=== PATIENT | female | born 1990 | race Caucasian/White ===

== ENCOUNTER 2018-05-01 08:22 | Inpatient (IN) | payer BC, OTHER ==
[~2018-05-01] VITALS: Ht 167.6 cm; Wt 58.5 kg
[2018-05-01 13:43] VITALS: BP 120/59
--- NOTE | 2018-05-01 13:45 | NUR ---
Pre-admission Pre-admission assessment performed in the intake department of [facility]. Pt is A&O and ambulatory with a steady gait. She appears intoxicated and answers all questions appropriately with slight slurred speech. She reports that she has been using Roxycodone, Klonopin, Valium, Xanax, and some ETOH. Vital signs are B/P 120/59, HR 102, O2 sat 95%, RR 19, T 98.2, pain 0/10. Admission to continue on the [facility].
[2018-05-01] MEDS ORDERED: LORAZEPAM 1 MG TABLET PO PRN (14:15)
[2018-05-01] MEDS ORDERED: LORAZEPAM 2 MG/1 ML VIAL IM PRN (14:15)
[2018-05-01] MEDS ORDERED: BUPRENORPHINE HCL 2 MG TAB.SUBL SL PRN (14:15)
[2018-05-01] MEDS ORDERED: ONDANSETRON 4 MG/2 ML VIAL IM PRN (14:15)
[2018-05-01] MEDS ORDERED: MIRALAX 17 GM POWD.PACK PO PRN (14:15)
[2018-05-01] MEDS ORDERED: LOPERAMIDE HCL 2 MG CAPSULE PO PRN ×2 (14:15)
[2018-05-01] MEDS ORDERED: THIAMINE HCL 200 MG/2 ML VIAL IM ONE (14:15)
[2018-05-01] MEDS ORDERED: MAG HYDROX/AL HYDROX/SIMETH 30 ML LIQUID UDC PO PRN (14:15)
--- NOTE | 2018-05-01 14:19 | NUR ---
Admission Note: Admitted at 27 year old female under the care of Dr. Matteo Camara for medically supervised withdrawal from BZO and opiates. Alert and verbally responsive. Oriented x 4. Denies S/I or H/I noted. Speech is slow and slurred. Teary eyed. Disheveled and unkempt. Appears intoxicated due to prior ingestion of substance before coming in to detox. Respirations even and unlabored. No SOB noted. Lung sounds clear bilaterally. Skin warm and moist to touch. Skin check done. No skin breakdown noted. However, she is noted with a track abdirizak to her left neck. Body check done. No contraband was found. Bladder soft and non-distended. Abdomen soft and non-distended. Denies any GI symptoms at this time. Voids independently. Ambulatory ad michelle with steady gait. 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 Denies withdrawal induced delirium and any cardiac complications related to withdrawal and denies history of overdose. She denies S/I or H/I at this time and has not past psychiatric hospitalization. She states her usual withdrawal symptoms are tremors, convulsions, nausea, vomiting, dizziness, anxiety, agitation and sweating. She recently achieved 9 months of sobriety that ended last year. She states that the cause of her relapse was due to relationship problems with her boyfriend, feelings of sadness, happiness all at the same time. She states I want to get sober because I need to start growing up. Im not a little girl anymore where someone needs to take care of me. I want to be the right woman for Darryl and I want him to me someday. She states that her triggers are high anxiety and dealing with negative emotions. She states I have a lot of guilt, shame, fear and school makes me want to relapse. She verbalizes that her relapse has caused negative consequences in her life by impairing relationships with her family, her boyfriend, friends, and school. She has attempted to be sober once in her life and states I am willing to do everything I can to be the woman I can be. Substance Use: 1. Xanax since 12 years old. Currently takes 1 bar (2mg) daily x 9 months via nasal insufflations. Last use was on 05/01/2018 at 0700, 1 mg. 2. Klonopin since 27 years old. Currently takes 2 mg PO at HS x 9 months. Last use was on 04/30/2018 at 2200, 2 mg. 3. Valium since 27 years old. Currently takes 15 mg tablets PO daily x 9 months when Xanax is not available. Last use was on 04/30/2018 at 2200. 4. Marta since 21 years old. Currently injects/snorts 90 mg daily x 9 months. Last use was on 05/01/2018 at 1000, 90 mg. 5. ETOH since 17 years old. Occasionally drinks 750cc of vodka. Last drink was on 04/24/2018 at 1400, 750cc Vodka. 6. Marijuana since 17 years old. Occasionally smokes 1 blunt x 9 months. Last use was on 05/01/2018 at 1000. Treatment History 1. [facility] in [place], [place] x 21 days when she was 24 years old. Orientation to the unit provided. Patient education provided regarding units policies and procedures. Patient was able to provide urine for UDS and blood for labs. She verbalized good understanding of all units policies and procedures. Report given to Dr. Camara who is in the unit at this time and patient will be on PRN Subutex and Ativan x 2 hours, but to be started on 5-day Subutex and 5-day Phenobarbital tomorrow AM. Orders noted and carried out. Addendum: 05/01/18 at 1502 by MERARY LITTLE LVN Patient continues to be appear intoxicated with no s/s of withdrawal noted at this time.
[2018-05-01 14:46] LABS: BASOPHILS # (AUTO) 0.1 K/uL (0.0-8.0); BASOPHILS % (AUTO) 0.9 % (0.0-2.0); EOSINOPHILS # (AUTO) 0.5 K/uL (0.0-0.7); EOSINOPHILS % (AUTO) 7.3 % (0.0-7.0); HEMATOCRIT 41.6 % (31.2-41.9); HEMOGLOBIN 13.9 g/dL (10.9-14.3); LYMPHOCYTES # (AUTO) 1.9 K/uL (20.0-40.0); LYMPHOCYTES % (AUTO) 26.3 % (20.5-51.5); MEAN CORPUSCULAR HGB CONC 34 g/dL (32.3-35.6); MEAN CORPUSCULAR VOLUME 92.7 fL (75.5-95.3); MONOCYTES # (AUTO) 0.6 K/uL (2.0-10.0); MONOCYTES % (AUTO) 8.3 % (0.0-11.0); NEUTROPHILS # (AUTO) 4.1 K/uL (1.8-8.9); NEUTROPHILS % (AUTO) 57.2 % (38.5-71.5); PLATELET COUNT (AUTO) 386 K/uL (179-408); RED BLOOD CELL COUNT(AUTO) 4.48 MIL/uL (3.63-4.92); WHITE BLOOD COUNT (AUTO) 7.1 K/uL (3.8-11.8)
[2018-05-01 15:00] LABS: ALANINE AMINOTRANSFERASE 22 U/L (14-59); ALKALINE PHOSPHATASE 71 U/L (50-136); AMYLASE 18 U/L (25-115); ASPARTATE AMINOTRANSFERASE 19 U/L (15-37); BILIRUBIN,TOTAL 0.7 mg/dL (0.2-1.0); CARBON DIOXIDE 31 mmol/L (21-32); CHLORIDE 101 mmol/L (98-107); CREATININE 0.8 mg/dL (0.6-1.3); GLUCOSE 105 mg/dL (74-106); LIPASE 115 U/L (73-393); MAGNESIUM 1.9 mg/dL (1.8-2.4); POTASSIUM 4.2 mmol/L (3.5-5.1); TOTAL PROTEIN, SERUM 8.2 g/dL (6.4-8.2); UREA NITROGEN, BLOOD 10 mg/dL (7-18)
[2018-05-01 15:01] LABS: *AMPHETAMINE, URINE NEGATIVE (NEGATIVE); *BARBITURATE, URINE NEGATIVE (NEGATIVE); *CANNABINOID, URINE POSITIVE (NEGATIVE); *COCCAINE, URINE NEGATIVE (NEGATIVE); *OPIATE, URINE NEGATIVE (NEGATIVE); *PHENCYCLIDINE SCREEN,URINE NEGATIVE (NEGATIVE)
[2018-05-01 15:03] LABS: ETHANOL < 3 MG/DL (0-0)
[2018-05-01 15:06] LABS: *URINE HCG, QUAL NEGATIVE (NEGATIVE)
[2018-05-01] MEDS ORDERED: IBUP-1627 PO (15:20)
[2018-05-01] MEDS ORDERED: BUPR300T52 PO (15:20)
[2018-05-01] MEDS ORDERED: [UNRECOGNIZED DRUG - CODE] PO (15:20)
[2018-05-01] MEDS ORDERED: SPIR100T5 PO (15:20)
--- NOTE | 2018-05-01 15:29 | NUR ---
Communication: Patient was seen curled in a sitting position in bed. She was seen to be crying profusely. Encouraged patient to verbalize her feelings and concerns. She states "I fucked up, I really fucked up. I feel like I can't breathe. I am having a legit panic attack. Please help me." Patient was encouraged with deep breathing exercises and reassurance was provided. Notified Dr. Camara with orders for OT Ativan 2 mg PO for anxiety leading to a panic attack. unable to enter in orders since he is driving. Orders obtained. Orders noted and carried out. Addendum: 05/01/18 at 1536 by MERARY LITTLE LVN Pulse 111. BP 125/89
[2018-05-01] MEDS ORDERED: LORAZEPAM 1 MG TABLET PO ONE (15:30)
--- NOTE | 2018-05-01 15:38 | NUR ---
OT Ativan 2 mg PO given: Patient was seen having a panic attack. Tears running and severely anxious. Pacing in the room back and fort. Pulse 111. Medicated patient with Ativan 2 mg PO at this time. Will monitor for effectiveness.
[2018-05-01 16:00] VITALS: BP 126/71
--- NOTE | 2018-05-01 16:38 | NUR ---
Re-assessment: Ativan 2 mg Patient was re-assessed. She appears to be calm. She is noted watching TV. Eating chips and a sandwich at this time. OT Ativan 2 mg PO for anxiety/panic attack was effective.
--- NOTE | 2018-05-01 16:49 | NUR ---
COWS/JATIN Assessment: COWS 5, JAMARWA 2, patient presented with mild anxiety. Patient states "I'm not ready to take any detox meds at this time. But I will definitely let you know, 'cause I don't want to get too sick." Support provided.
[2018-05-01] MEDS ORDERED: Medication Not On Formulary EA (Bupropion Hcl (Wellbutrin Xl) 300 MG) PO SCH (17:15)
[2018-05-01] MEDS: buPROPion XL 150 MG TAB.SR.24H PO SCH (18:51)
--- NOTE | 2018-05-01 19:07 | NUR ---
End of Shift Notes: Patient was admitted today at 1419. She will be started on 5-day Phenobarbital and 5-day Subutex taper as ordered with PRNs to manage withdrawal symptoms related to opiate and BZOs. VS monitored closely. She was noted to have a panic attack at 1538 for which she needed 2 mg of Ativan PO as ordered with help. Last COWS 5/ CIWA 2. She was unable to participate in group and activities. Appetite good. Seen and examined by Dr. Stahl today and started patient on Wellbutrin XL 300 mg PO as ordered. Compliant with care and treatment. All needs met and attended. Will continue to monitor.
--- NOTE | 2018-05-01 19:30 | NUR ---
START OF SHIFT Received 27 year old female patient admitted on 05/01/18 for Benzodiazepine, Opiate, ETOH and Marijuana withdrawal. Pt is alert and oriented x4. Pt is noted to be drowsy, and lethargic. She is arousable to verbal stimulation. She is scheduled to start a 5 day Subutex and 5 day Phenobarbital taper tomorrow 05/02/18. She was seen and examined by Dr. Stahl. She also received a one time order for Ativan 2 mg at 1538 for increased anxiety/panic attack. Breathing is even and unlabored, safety measures in place. Will continue to monitor.
--- NOTE | 2018-05-01 20:00 | NUR ---
COWS/CIWA Pt is lying in bed with eyes closed and noted to be asleep. Pt is drowsy and lethargic. Arousable to verbal and tactile stimulation. Unable to accurately assess COWS/CIWA at this time. Safety measures in place. Will continue to monitor.
[2018-05-01 20:07] VITALS: BP 90/50
[2018-05-01 23:25] VITALS: BP 95/58
[2018-05-01] MEDS: LORAZEPAM 1 MG TABLET PO PRN (23:25)
[2018-05-01] MEDS: diphenhydrAMINE 50 MG CAPSULE PO PRN (23:25)
[2018-05-01] MEDS: METHOCARBAMOL 750 MG TABLET PO PRN (23:25)
--- NOTE | 2018-05-01 23:25 | NUR ---
PRN ATIVAN, ROBAXIN, BENADRYL Pt complains of anxiety, restlessness, body aches, and difficulty falling asleep. CIWA:9. PRN Ativan, Robaxin and Benadryl administered as ordered. Safety measures in place. Will monitor effectiveness.
--- NOTE | 2018-05-01 23:25 | NUR ---
RON/JATIN Pt complains of body aches, increased anxiety, stuffy nose, chills, watery eyes, and difficulty falling asleep. Pt states " I'm not ready for my Subutex, I'll definitely need it in the morning." COWS:9, JATIN:9. Will monitor.
--- NOTE | 2018-05-02 00:25 | NUR ---
PRN ATIVAN, ROBAXIN, BENADRYL REASSESSMENT PRN medications effective. Pt is lying in bed with eyes closed noted to be asleep. No facial grimacing noted. Breathing is even and unlabored, safety measures in place. Will monitor.
--- NOTE | 2018-05-02 04:00 | NUR ---
VITALS REFUSED, COWS/CIWA DEFERRED 0400 vitals were refused. COWS/CIWA deferred. Pt is lying in bed with eyes closed noted to be asleep. Breathing even and unlabored, safety measures in place. Will monitor.
--- NOTE | 2018-05-02 07:11 | NUR ---
END OF SHIFT Pt is a 27 year old female patient admitted on 05/01/18 for Benzodiazepine, Opiate, ETOH and Marijuana withdrawal. Pt remains alert and oriented x4. Pt was noted to be drowsy, and lethargic. She complained of body aches, anxiety, chills and stuffy nose during the shift. She is scheduled to start a 5 day Subutex and 5 day Phenobarbital taper today 05/02/18. At 2325 she received PRN Ativan, Robaxin and Benadryl. She slept a total of 8 hrs, Intake: 737mL, Void: x1, BM:0, CIWA:9, COWS:9 at 2325. Breathing is even and unlabored, safety measures in place. Endorsed to AM shift.
--- NOTE | 2018-05-02 07:19 | NUR ---
Start of Shift Notes: Received patient in her room. Easily arousable when her name is called. Alert and oriented x 4. Denies S/I or H/I noted. No AV hallucinations noted. She verbalizes "It's so fucking cold here. I am having the chills, hot flashes, and stuffy nose." Room temperature was adjusted and extra blanket was provided. Patient states that she is willing to wait at 0800 for all her meds to be given. Patient is a 27 year old female admitted for BZO and opiate withdrawal who was placed on a 5-day Subutex and 5-day Phenobarbital taper as ordered. No adverse reactions noted. Educated patient on her current plan of care for the day and her medication regimen. Encouraged oral fluid intake and encouraged group participation to learn new skills to prevent relapse. Per night report, patient was given Ativan, Robaxin and Benadryl. Slept for 8 hours. Last 9/WA 9. Will continue to monitor.
[2018-05-02 08:00] VITALS: BP 102/61
--- NOTE | 2018-05-02 08:00 | NUR ---
RON/JATIN Assessment/MD Communication: RON 27, JATIN 24, patient was noted to frequently shift body position while in bed. She is noted with runny nose, constant tearing. Mood is labile. Dramatic and guarded. She is tearful and verbalizes "I feel like shit." She complains of being "hot and cold," noted with pupil dilation, yawning and piloerection of the skin. She also complains of nausea, abdominal cramping, anxiety and appears highly agitated. Will offer PRN meds and start patient on 5-day Phenobarbital and 5-day Subutex taper as ordered.
[2018-05-02] MEDS: MULTIVITAMINS,THERAPEUTIC TABLET PO SCH (08:03)
[2018-05-02] MEDS: buPROPion XL 150 MG TAB.SR.24H PO SCH (08:03)
[2018-05-02] MEDS: CLONIDINE HCL 0.1 MG TABLET PO PRN ×2 (08:04→14:04)
[2018-05-02] MEDS: PHENOBARBITAL 60 MG TABLET PO SCH ×3 (08:04→20:55)
[2018-05-02] MEDS: BUPRENORPHINE HCL 2 MG TAB.SUBL SL SCH ×4 (08:04→20:54)
[2018-05-02] MEDS: THIAMINE HCL 100 MG TABLET PO SCH (08:04)
[2018-05-02] MEDS: DICYCLOMINE HCL 20 MG TABLET PO PRN ×2 (08:04→17:19)
[2018-05-02] MEDS: METHOCARBAMOL 750 MG TABLET PO PRN (08:04)
[2018-05-02] MEDS: ONDANSETRON ODT 4 MG TAB.RAPDIS SL PRN ×2 (08:04→20:53)
--- NOTE | 2018-05-02 08:04 | NUR ---
Zofran/Clonidine/Benty/Robaxin PO given: Patient was noted with complain of nausea. Unable to eat her breakfast tray. She also complains of 7/10 generalized muscle/joint aches, chills, hot flashes, clammy skin, abdominal cramps and anxiety. Medicated patient with Clonidine, Bentyl and Robaxin as ordered. Will monitor for effectiveness.
[2018-05-02 08:08] LABS: HEPATITIS B SURFACE AG Negative (Negative)
[2018-05-02] MEDS ORDERED: TUBERCULIN,PURIF.PROT.DERIV. 5 TU/0.1 ML TEST ID ONE (09:00)
[2018-05-02] MEDS ORDERED: 6 DAY PHENOBARBITAL TAPER -SERENITY PROTOCOL PO PRN (09:00)
[2018-05-02] MEDS ORDERED: 5 DAY TAPER BUPRENORPHINE -SERENITY PROTOCOL SL PRN (09:00)
--- NOTE | 2018-05-02 09:04 | NUR ---
Re-assessment: Zofran/Clonidine/Bentyl and Robaxin Patient was re-assessed. She was seen in her room. She denies nausea. Skin is warm and moist to touch. She appears less anxious. Abdominal cramping ceased. She verbalizes that her PL is now 3/10. PRN Zofran, Clonidine, Bentyl and Robaxin were effective.
[2018-05-02] MEDS: LORAZEPAM 1 MG TABLET PO PRN (10:53)
--- NOTE | 2018-05-02 10:54 | NUR ---
PRN Subutex 4 mg SL and PRN Ativan 1 mg pO given/MD Communication: COWS 27/CIWA 15. VS stable. Patient called on the call light. Assessed. She was noted with gross tremors. Shivering and diaphoretic with clammy skin. She states "I feel like shit. I want to shower. I'm so uncomfortable." Medicated patient with PRN Subutex 4 mg SL and Ativan 1 mg PO from PRN dose. Notified MD.
--- NOTE | 2018-05-02 11:24 | NUR ---
Re-assessment: Subutex 4 mg SL COWS 17, less tremors, anxiety, less yawning, abdominal discomfort, nausea, and agitation noted. PRN Subutex 4 mg SL was effective.
--- NOTE | 2018-05-02 11:54 | NUR ---
Re-assessment: Ativan CIWA 15, patient continues to be anxious, agitated. Patient states she will try to lay down and rest it off. She states "I will wait for my next dose of Phenobarbital." Will continue to monitor.
[2018-05-02 12:00] VITALS: BP 97/63
[2018-05-02] MEDS: IBUPROFEN 600 MG TABLET PO PRN ×2 (12:22→20:54)
--- NOTE | 2018-05-02 12:22 | NUR ---
Motrin 600 mg PO given: Patient complained of 5/10 generalized pain. Non-pharmacological interventions provided but ineffective. Medicated patient with Motrin 600 mg PO as ordered. Will monitor for effectiveness. Addendum: 05/02/18 at 1335 by MERARY LITTLE LVN Error in charting. Duplicate in charting
--- NOTE | 2018-05-02 12:22 | NUR ---
RON/JATIN Assessment/ aware/PRN Motrin given: RON 19/JATIN 18, patient presented with body aches, anxiety, agitation, tremors, sweating, light sensitivity, chills, and hot flashes. She verbalizes that complain of 5/10 body aches. Medicated patient with Motrin 600 mg PO as ordered. Will monitor for effectiveness.
[2018-05-02] MEDS: SPIRONOLACTONE 100 MG TABLET PO SCH (12:59)
--- NOTE | 2018-05-02 13:22 | NUR ---
Re-assessment: Motrin Per patient, PRN Motrin was effective in reducing body aches. PL is now 12/01.
--- NOTE | 2018-05-02 14:04 | NUR ---
Clonidine 0.1mg PO given: Patient is diaphoretic, cold clammy skin noted. She was noted with gross tremors, restless and appears to be shivering. She verbalizes "I'm so anxious, I feel like I have the flu." VS 117/89, Pulse 93. Medicated patient with Clonidine 0.1mg PO as ordered. Will monitor for effectiveness.
--- NOTE | 2018-05-02 14:07 | NUR ---
Verbal MD order: Pt noted with breakthrough withdrawal symptoms. New order for 300mg Gabapentin PO TID and 10mg Baclofen PO Q6HPRN for muscle spasms. Orders noted and carried out.
[2018-05-02] MEDS ORDERED: GABAPENTIN 300 MG CAPSULE PO SCH (14:15)
[2018-05-02] MEDS: BACLOFEN 10 MG TABLET PO PRN ×2 (14:21→20:53)
--- NOTE | 2018-05-02 14:21 | NUR ---
Baclofen 10 mg PO given: Patient complained of generalized muscle aches and pains /. Non-pharmacological interventions provided but ineffective. Medicated patient with Baclofen 10 mg PO as ordered. Will monitor for effectiveness.
--- NOTE | 2018-05-02 14:59 | NUR ---
OT Subutex 4 mg SL given: Patient continues to exhibit moderate s/s of withdrawal related to opiates. Medicated patient with Subutex 4 mg SL as ordered per MD for COWS 20. Will continue to monitor.
[2018-05-02] MEDS ORDERED: BUPRENORPHINE HCL 2 MG TAB.SUBL SL ONE (15:00)
--- NOTE | 2018-05-02 15:04 | NUR ---
Re-assessment: Clonidine Patient was noted with less sweating and less anxiety. She states "I feel a little bit better." PRN Clonidine was effective.
--- NOTE | 2018-05-02 15:21 | NUR ---
Re-assessment: Baclofen Patient verbalizes relief from myalgia/muscle spasms. PL is now 12/01.
[2018-05-02 16:00] VITALS: BP 95/68
--- NOTE | 2018-05-02 17:06 | NUR ---
RON/JATIN Assessment/MD Communication: RON 17/JATIN 17, patient continues to present with diaphoresis, clammy skin, gross tremors, anxiety, agitation, light sensitivity and abdominal cramps. Notified MD Camara and Klaudia of patient's scores. Per MD, continue current orders at this time and offer PRNs.
[2018-05-02] MEDS: METHOCARBAMOL 500 MG TABLET PO PRN (17:19)
--- NOTE | 2018-05-02 17:19 | NUR ---
Bentyl 20 mg/Robaxin 750 mg PO given: patient complained of 6/10 abdominal cramping and generalized body aches. Medicated patient with Bentyl 20 mg PO and Robaxin 750 mg PO as ordered. Will monitor for effectiveness.
--- NOTE | 2018-05-02 17:25 | NUR ---
Additional Usage History: Patient reported using more than she originally reported upon admission. She states "It wasn't just 90 mg of Roxys I was doing a day. I was using 180 mg of Roxys a day laced with Fentanyl." When asked patient, how much Fentanyl, patient replied "I don't know my dealer told me it was laced." Notified MD. To continue current order.
--- NOTE | 2018-05-02 18:19 | NUR ---
Re-assessment: Robaxin/Bentyl Patient verbalizes relief from abdominal cramping and myalgia. She states that body aches is now 3/10. PRN Robaxin and Bentyl were effective.
--- NOTE | 2018-05-02 19:20 | NUR ---
End of Shift Notes: Patient initiated her 5-day Subutex and 5-day Phenobarbital taper as ordered. No adverse reactions noted. VS monitored closely. No significant abnormalities noted. Withdrawal symptoms were closely monitored. Initial COWS /CI 24, patient presented with elevated pulse, sweating, restlessness, chills, clammy skin, fatigue, poor appetite, hot flashes, pupil dilation, bone/joint aches, runny nose, nausea, gross tremors, piloerection of the skin, anxiety, agitation, poor appetite, abdominal cramping and yawning. Medicated patient with Zofran, Clonidine, Bentyl, Robaxin at 0804 and additional Subutex 4 mg SL and Ativan 1 mg Po at 1054. She was given Motrin 600 mg PO at 1222 and Clonidine at 1400. She was noted to have breakthrough s/s of withdrawal requiring additional Subutex 4 mg SL at 1459 and Baclofen at 1421 with help. PRN Robaxin and Bentyl were given at 1719 with help. Last COWS / 17. Patient verbalizes that Phenobarbital and Subutex has been effective in reducing her withdrawal symptoms. Seen and examined by Dr. Stahl today with orders for Seroquel 50 mg PO at HS for sleep. Patient was unable to participate in group today due to her withdrawal symptoms. Complaint with care and treatment. All needs met and attended. Will continue to monitor
--- NOTE | 2018-05-02 19:30 | NUR ---
START OF SHIFT Pt is a 27 y/o female admitted on 05/01/18 for benzo and opiate withdrawal. Pt is on a 5 day Subutex and 5 day Phenobarbital taper that started today. Pt had PRN and a one time order of Subutex 4 mg today. PRN Zofran, Clonidine x 2, Robaxin x 2, Bentyl x2, Motrin, Baclofen, and Ativan 1 mg administered and last CIWA 27 and COWS 17 during day shift. Upon assessment presents with anxiety, agitation, flat affect, depressed affect, drenching sweats, chills, goosebumps, dilated pupils, disheveled appearance, restlessness, fidgety, headache, body aches, muscle spasms, stomach cramps, tingling/pins and needles sensation in neck and lower back, intermittent nausea, yawning, stuffy nose, teary eyes, unkempt room, and is isolative. Pt states, "I feel to sick to get out of bed." Medications due. Safety measures in place. Call light within reach. Will continue to monitor.
[2018-05-02 20:00] VITALS: BP 97/63
--- NOTE | 2018-05-02 20:00 | NUR ---
COWS 18 AND CIWA 25 Pt presents with anxiety, agitation, drenching sweats, chills, goosebumps, dilated pupils, restlessness, fidgety, headache, body aches, muscle spasms, stomach cramps, tingling/pins and needles sensation in neck and lower back, nausea, yawning, stuffy nose, and teary eyes.
[2018-05-02] MEDS: MAGNESIUM HYDROXIDE 30 ML LIQUID UDC PO PRN (20:53)
[2018-05-02] MEDS: GABAPENTIN 300 MG CAPSULE PO SCH (20:53)
--- NOTE | 2018-05-02 20:53 | NUR ---
PRN BACLOFEN, MOTRIN, TYLENOL AND ZOFRAN ODT ADMINISTRATION Pt presents with muscle spasms in lower back, headache, generalized body pain, and nausea without vomiting. Safety measures in place. Call light within reach. Will continue to monitor. Addendum: 05/02/18 at 2318 by OSIRIS POE RN ADDITIONAL: MILK OF MAG ADMINISTRATION Pt reports being constipated, pt states, "I haven't gone in like 4 days."
[2018-05-02] MEDS: ACETAMINOPHEN 325 MG TABLET PO PRN (20:54)
[2018-05-02] MEDS: QUETIAPINE FUMARATE 25 MG TABLET PO SCH (20:55)
--- NOTE | 2018-05-02 21:23 | NUR ---
PRN COLLETTEFRAN ODT REASSESSMENT Pt reports improvement in nausea to tolerable level. Safety measures in place. Call light within reach. Will continue to monitor.
--- NOTE | 2018-05-02 21:53 | NUR ---
PRN BACLOFEN, MOTRIN AND TYLENOL REASSESSMENT Pt laying in bed with eyes closed, medications noted effective. Respirations even and unlabored. Safety measures in place. Call light within reach. Will continue to monitor. Addendum: 05/02/18 at 2318 by OSIRIS POE RN ADDITIONAL: MILK OF MAG REASSESSMENT Pt has not had BM, will continue to monitor.
[2018-05-03] VITALS: BP 77/45
--- NOTE | 2018-05-03 | NUR ---
COWS/CIWA DEFERRED Pt laying in bed with eyes closed, COWS/CIWA deferred, to be assessed when pt is awake per orders. Respirations unlabored and even. Safety measures in place. Call light within reach. Will continue to monitor.
--- NOTE | 2018-05-03 04:00 | NUR ---
COWS/CIWA DEFERRED AND VITALS REFUSED Pt laying in bed with eyes closed, COWS/CIWA deferred, to be assessed when pt is awake per orders. Vitals refused. Respirations unlabored and even. Safety measures in place. Call light within reach. Will continue to monitor.
--- NOTE | 2018-05-03 07:14 | NUR ---
END OF SHIFT Pt is a 27 y/o female admitted on 05/01/18 for benzo and opiate withdrawal. Pt is on a 5 day Subutex and 5 day Phenobarbital taper that started on 05/02/18. Pt presented with anxiety, agitation, flat affect, depressed affect, drenching sweats, chills, goosebumps, dilated pupils, disheveled appearance, restlessness, fidgety, headache, body aches, muscle spasms, stomach cramps, tingling/pins and needles sensation in neck and lower back, intermittent nausea, yawning, stuffy nose, teary eyes, unkempt room, constipation and was withdrawn. Complete linen change and change of clothes needed d/t drenching sweats. Scheduled medications and PRN Baclofen, Motrin, Tylenol, Zofran odt and Milk of Mag administered, effective in S/S of withdrawal as verbalized by pt. Last COWS 18 and CIWA 25. Pt slept 8 hours. Intake 1450 ml, void x 1, stool x 0. Safety measures in place. Call light within reach. Pts needs have been met. Endorsed to day shift nurse.
--- NOTE | 2018-05-03 07:24 | NUR ---
Start of Shift Notes: Received patient in her room. Easily arousable when her name is called. Alert and oriented x 4. Denies S/I or H/I noted. No AV hallucinations noted. Patient is a 27 year old female admitted for BZO and opiate withdrawal who was placed on a 5-day Subutex and 5-day Phenobarbital taper as ordered. No adverse reactions noted. Educated patient on her current plan of care for the day and her medication regimen. Encouraged oral fluid intake and encouraged group participation to learn new skills to prevent relapse. Per night report, patient was given Baclofen, Motrin and Tylenol were given during the night. Slept for 8 hours. Last COWS 18/CIWA 25. Will continue to monitor.
[2018-05-03 08:00] VITALS: BP 108/79
--- NOTE | 2018-05-03 08:12 | NUR ---
RON/JATIN Assessment/ Communication: RON /JATIN , patient presented with pulse elevation, sweating, cold, clammy skin, diaphoresis, restlessness, myalgia, runny nose, tearing, nausea, gross tremors, piloerection of the skin, anxiety and agitation, and lightheadedness. She was also noted to be irritable and frequently shifting body movement with facial grimacing. MD Camara made aware.
[2018-05-03] MEDS: GABAPENTIN 300 MG CAPSULE PO SCH ×3 (08:13→21:03)
[2018-05-03] MEDS: THIAMINE HCL 100 MG TABLET PO SCH (08:13)
[2018-05-03] MEDS: DICYCLOMINE HCL 20 MG TABLET PO PRN (08:13)
[2018-05-03] MEDS: MULTIVITAMINS,THERAPEUTIC TABLET PO SCH (08:13)
[2018-05-03] MEDS: PHENOBARBITAL 60 MG TABLET PO SCH ×4 (08:14→21:02)
[2018-05-03] MEDS: CLONIDINE HCL 0.1 MG TABLET PO PRN (08:14)
[2018-05-03] MEDS: BUPRENORPHINE HCL 2 MG TAB.SUBL SL SCH ×3 (08:14→21:03)
[2018-05-03] MEDS: ONDANSETRON ODT 4 MG TAB.RAPDIS SL PRN (08:15)
--- NOTE | 2018-05-03 08:15 | NUR ---
Zofran 4 mg ODT, Bentyl 20 mg, Clonidine 0.1mg, Baclofen 20 mg PO given: Patient was given Zofran 4 mg for nausea, Bentyl 20 mg for abdominal discomfort, Clonidine 0.1mg PO foc anxiety, chills, hot flashes, and Baclofen 20 mg PO for myalgia. Will monitor for effectiveness.
[2018-05-03] MEDS: SPIRONOLACTONE 100 MG TABLET PO SCH (08:16)
--- NOTE | 2018-05-03 09:15 | NUR ---
Re-assessment: Zofran, Clonidine, Bentyl, and Baclofen Patient was re-assessed. She verbalzies relief from nausea, chills, hot flashes, and abdominal cramping. She states that her PL is now 3/10 from a 04/30. PRN Zofran, Clonidine, Bentyl and Baclofen were effective.
[2018-05-03] MEDS: buPROPion XL 150 MG TAB.SR.24H PO SCH (09:20)
[2018-05-03 12:00] VITALS: BP 115/61
--- NOTE | 2018-05-03 12:00 | NUR ---
COWS/JATIN Assessment/MD Communication: Patient's COWS 26/JAMARWA 23, she continues to be restless while laying down. Shifting her body position. Diaphoretic and shirt/face drenched in sweats. She is noted with irritability stating "I can't keep fucking still and I can't stop sweating. I'm so sick of being sick." Pulse 93. Notified MD Camara. Patient will have additional Subutex 4 mg SL PRN due to Fentanyl use. Orders noted and carried out.
[2018-05-03] MEDS: BUPRENORPHINE HCL 2 MG TAB.SUBL SL PRN (12:22)
--- NOTE | 2018-05-03 12:22 | NUR ---
PRN Subutex 4 mg SL given: Patient noted with COWS 26, she continues to exhibit moderate to severe s/s of withdrawal. She is noted to be diaphoretic, cold, clammy skin, irritable, anxious, labile, agitated. She complains of hot and cold flashes. PRN Subutx 4 mg SL given. Will monitor for effectiveness.
--- NOTE | 2018-05-03 12:52 | NUR ---
Re-assessment: Subutex 4 mg SL COWS 20, patient noted with less yawning, less sweating, skin moist to touch. PRN Subutex 4 mg SL was effective in reducing s/s of withdrawal.
--- NOTE | 2018-05-03 13:15 | NUR ---
MOM Re-assessment: Patient was noted with no BM at this time.
--- NOTE | 2018-05-03 13:45 | NUR ---
PRN Ativan orders: Verbal orders received from Dr. Camara for patient to have Ativan PRN per CIWA score due to moderate to severe s/s of withdrawal. unable to enter orders. Orders noted and carried out.
[2018-05-03] MEDS: BACLOFEN 10 MG TABLET PO PRN (14:03)
--- NOTE | 2018-05-03 14:03 | NUR ---
Ativan 2 mg PO/Baclofen 10 mg PO given: Patient noted with complain of generalized malgia of 5/10. CIWA 23 upon assessment m/b severe agitation, anxiety, sweating and tremors. Medicated patient with Ativan 2 mg PO and Baclofen 10 mg PO as ordered. Will monitor for effectiveness.
[2018-05-03] MEDS: LORAZEPAM 1 MG TABLET PO PRN ×2 (14:04→21:02)
--- NOTE | 2018-05-03 15:03 | NUR ---
Re-assessment: Ativan and Baclofen CIWA 18, patient verbalizes relief from nausea, anxiety, sweating, agitation and myalgia. She reports her PL is now 3/10. She is currently in group at this time. PRN Ativan and Baclofen were effective.
[2018-05-03 16:00] VITALS: BP 125/61
--- NOTE | 2018-05-03 17:51 | NUR ---
COWS/CIWA Assessment: COWS 20/CIWA 16, patient continues to exhibit s/s of withdrawal m/b sweating, anxiety, agitation, cold clammy skin, light sensitivity, gross tremors and fatigue. Will continue to monitor and offer PRN meds. Patient is attempting to eat dinner at this time.
--- NOTE | 2018-05-03 19:08 | NUR ---
End of Shift Notes: Patient continues to be on 5-day Subutex and 5-day Phenobarbital taper as ordered. No adverse reactions noted. She is currently on day 2. VS monitored closely. No significant abnormalities noted. Withdrawal symptoms were closely monitored. Initial COWS 26/CIWA 26, patient presented with elevated pulse, sweating, restlessness, chills, irritability, clammy skin, fatigue, poor appetite, hot flashes, pupil dilation, bone/joint aches, runny nose, nausea, gross tremors, piloerection of the skin, anxiety, agitation, poor appetite, abdominal cramping and yawning. Medicated patient with Zofran, Clonidine, Bentyl, Baclofen at 0815 with help. Baclofen 10 mg PO given at 1403 for myalgia. She was started on PRN Subutex 4 mg SL due to moderate to severe s/s of withdrawal due to Fentanyl. She was also started on PRN Ativan per CIWA score. Last COWS 20/CIWA 16. Patient verbalizes that Phenobarbital and Subutex has been effective in reducing her withdrawal symptoms. Seen and examined by Dr. Stahl today with NNO. Patient was unable to participate in group today due to her withdrawal symptoms. Complaint with care and treatment. All needs met and attended. Will continue to monitor
[2018-05-03 20:00] VITALS: BP 105/62
--- NOTE | 2018-05-03 20:00 | NUR ---
Start of Shift Patient appears disheveled and unkempt, noted to be suspicious and with flat affect. Patient avoids conversation and noted to be melancholic and stares into the ceiling. Patient observed to be anxious, easily agitated and has poor concentration. Patient verbalized, "I don't feel good, I need my night meds." Educated patient regarding medications, plan of care and treatment and patient needs further reinforcement of teachings about these. Fall, universal, seizure and safety precautions in place. Call light within reach. Latest COWS-16, CIWA-14. Will continue to monitor.
[2018-05-03] MEDS: QUETIAPINE FUMARATE 25 MG TABLET PO SCH (21:02)
[2018-05-03] MEDS: METHOCARBAMOL 500 MG TABLET PO PRN (21:03)
--- NOTE | 2018-05-03 21:03 | NUR ---
RN note PRN Robaxin Patient c/o generalized muscle weakness=/10. Administered Robaxin 750 mg PO PRN as ordered. Will reassess.
--- NOTE | 2018-05-03 22:05 | NUR ---
RN note reassess Patient verbalized that her pain level decreased to 2-3/10.
[2018-05-03] MEDS: MAGNESIUM HYDROXIDE 30 ML LIQUID UDC PO PRN (23:01)
--- NOTE | 2018-05-03 23:01 | NUR ---
RN note PRN MOM Patient stated feeling constipated and noted able to have bowel movement for the past 3 days. Administered MOM 30 ml PO PRN as ordered. Will reassess.
[2018-05-03] MEDS: diphenhydrAMINE 50 MG CAPSULE PO PRN (23:12)
--- NOTE | 2018-05-03 23:13 | NUR ---
RN note PRN Benadryl Pt c/o inability to sleep. Administered Benadryl 50 mg PO PRN as ordered. Will reassess.
[2018-05-04] VITALS: BP 112/65
--- NOTE | 2018-05-04 00:15 | NUR ---
RN note reassess Patient asleep on bed, with no SOB nor facial grimacing noted.
[2018-05-04 04:00] VITALS: BP 105/63
[2018-05-04] MEDS: LORAZEPAM 1 MG TABLET PO PRN ×2 (04:41→12:34)
[2018-05-04] MEDS: BUPRENORPHINE HCL 2 MG TAB.SUBL SL PRN (04:42)
--- NOTE | 2018-05-04 04:43 | NUR ---
RN note PRN Subutex and Ativan Patient c/o increasing anxiety, worsening tremors and "not feeling good overall". COWS=13, CIWA=12. Administered Subutex 4 mg SL PRN and Ativan 1 mg PO PRN as ordered. Will reassess.
--- NOTE | 2018-05-04 05:15 | NUR ---
RN note Subutex reassess Patient reassessed, COWS=10. Patient verbalized "feeling a little better".
--- NOTE | 2018-05-04 05:43 | NUR ---
RN note Ativan reassess Patient verbalized "feeling a little better", with decreased anxiety. CIWA=11.
--- NOTE | 2018-05-04 06:30 | NUR ---
RN note MOM reassess Patient still not able to go. Endorsed to AM shift nurse to reassess.
--- NOTE | 2018-05-04 07:08 | NUR ---
End of Shift Patient continues to be disheveled and unkempt, with flat affect and labile mood. Patient continues to be anxious, easily agitated and has poor concentration. Patient noted to be too focused on her medications. Re-educated patient regarding medications, plan of care and treatment. Fall, universal, seizure and safety precautions in place. Call light within reach. Latest COWS-10, CIWA-11, slept for 6 hours. Endorsed to AM shift nurse for continuity of care.
--- NOTE | 2018-05-04 07:45 | NUR ---
START OF SHIFT PT IS A 27 Y/O M ADMITTED ON 05/01/18 FOR MEDICALLY SUPERVISED BENZO AND OPIATE WITHDRAWAL. PT IS PLACED ON 5 DAY SUBUTEX AND 5 DAY PHENOBARBITAL TAPER AND TOLERATING WELL. PT IS A/OX4, RESPIRATIONS EVEN AND UNLABORED. PT PRESENTS A FLAT AFFECT WITH A DEPRESSIVE MOOD, IS SOFT SPOKEN AND WITHDRAWN. PRESENTS ANXIETY, AGITATION, RESTLESSNESS, HOT/COLD FLASHES, DIAPHORESIS, BONE AND JOINT ACHES, NASAL STUFFINESS, POOR APPETITE, TINGLING, PINS AND NEEDLES SENSATIONS ON THE BACK OF THE NECK, TREMORS NOTED. MULTIPLE DRINK BOTTLES ON TABLES AND COUNTERS. PT SLEPT 6 HRS, BENADRYL, MOM, ATIVAN 1 MG SUBUTEX 4 MG, PRNS GIVEN LAST SHIFT. LAST COWS 10 AND CIWA 11. ENCOURAGED PT TO VERBALIZE FEELINGS ABOUT SITUATION AND EDUCATED PT WITH TODAY'S PLAN OF CARE AND MED REGIMEN. SIDE RAILS UPX2 AND PADDED, BED IN LOWEST POSITION. CALL LIGHT WITHIN REACH. SAFETY MEASURES IN PLACE. WILL CONTINUE TO MONITOR.
[2018-05-04 08:00] VITALS: BP 93/62
--- NOTE | 2018-05-04 08:00 | NUR ---
COWS /CIWA ASSESSMENT 0800 COWS 14 AND CIWA 16. PT PRESENTS A FLAT AFFECT WITH A DEPRESSIVE MOOD, HAS POOR EYE CONTACT, IS SOFT SPOKEN AND WITHDRAWN. PT PRESENTS ANXIETY, AGITATION, RESTLESSNESS, HOT/COLD FLASHES, DIAPHORESIS, BONE AND JOINT ACHES, NASAL STUFFINESS, POOR APPETITE, TINGLING, C/O PINS AND NEEDLES SENSATIONS ON THE BACK OF THE NECK, TREMORS NOTED.
[2018-05-04] MEDS ORDERED: BUPRENORPHINE HCL 2 MG TAB.SUBL SL SCH (09:00)
[2018-05-04] MEDS: PHENOBARBITAL 60 MG TABLET PO SCH ×3 (09:13→22:05)
[2018-05-04] MEDS: GABAPENTIN 300 MG CAPSULE PO SCH ×3 (09:13→22:05)
[2018-05-04] MEDS: SPIRONOLACTONE 100 MG TABLET PO SCH (09:13)
[2018-05-04] MEDS: THIAMINE HCL 100 MG TABLET PO SCH (09:13)
[2018-05-04] MEDS: MULTIVITAMINS,THERAPEUTIC TABLET PO SCH (09:13)
[2018-05-04] MEDS: buPROPion XL 150 MG TAB.SR.24H PO SCH (09:25)
[2018-05-04] MEDS: BACLOFEN 10 MG TABLET PO PRN ×2 (09:28→22:28)
--- NOTE | 2018-05-04 09:28 | NUR ---
REASSESSMENT PT REPORTS NO BM YET AND MUSCLES ACHES DECREASED IN INTENSITY. WILL CONTINUE TO MONITOR.
--- NOTE | 2018-05-04 09:28 | NUR ---
PRN BACLOFEN 20 MG AND MIRALAX PRN GIVEN FOR C/O MUSCLE ACHES AND CONSTIPATION. WILL MONITOR AND REASSESS.
[2018-05-04 12:00] VITALS: BP 107/63
--- NOTE | 2018-05-04 12:00 | NUR ---
COWS / CIWA ASSESSMENT COWS 19 AND CIWA 19; PT PRESENTS INCREASED ANXIETY AND AGITATION, PT WAS SITTING UP IN BED CRYING UPON ENTERING ROOM. PT PRESENTS DIAPHORESIS, GROSS/FINE TREMORS, CHILLS, INTERMITTENT COLD/HOT FLASHES, PILOERECTION OF THE SKIN, NASAL CONGESTION, GENERALIZED BODY ACHES 8/10 PAIN, SENSE OF PANIC, PINS AND NEEDLES SENSATIONS, CLAMMY SKIN, RESTLESSNESS, HR OF 88, AND PUPILS LARGER THAN NORMAL.
[2018-05-04] MEDS: METHOCARBAMOL 500 MG TABLET PO PRN (12:34)
--- NOTE | 2018-05-04 12:34 | NUR ---
PRN IBUPROFEN 600 MG , ROBAXIN 750 MG, AND ATIVAN 2 MG PO PRN GIVEN; PT IS SITTING IN ROOM CRYING, STATING SHE HAS EXTREME ANXIETY 05/31, SENSE OF PANIC, C/O JOINT AND BONE ACHES, GENERALIZED BODY ACHES 05/31 PAIN, PT PRESENTS AGITATION, IS HIGHLY IRRITABLE, APPEARS FLUSHED, HR 88. WILL MONITOR AND REASSESS. Addendum: 05/04/18 at 1444 by KAMLA DE LEON RN JATIN Steele.
--- NOTE | 2018-05-04 13:34 | NUR ---
REASSESSMENT PT REPORTS MEDS EFFECTIVE HOWEVER VERBALIZED GENERALIZED BODY ACHES ARE THE SAME. PT APPEARS RELAXED AND CALM. SAFETY MEASURES IN PLACE. WILL CONTINUE TO MONITOR.
[2018-05-04] MEDS: BUPRENORPHINE HCL 2 MG TAB.SUBL SL SCH ×2 (14:08→22:05)
[2018-05-04] MEDS: CLONIDINE HCL 0.1 MG TABLET PO PRN ×2 (14:10→22:28)
--- NOTE | 2018-05-04 14:10 | NUR ---
PRN CLONIDINE 0.1 MG PO PRN GIVEN FOR C/O CHILLS, DIAPHORESIS, PILOERECTION OF SKIN. WILL MONITOR AND REASSESS.
--- NOTE | 2018-05-04 15:10 | NUR ---
REASSESSMENT PT REPORTED CLONIDINE WAS EFFECTIVE FOR CHILLS, HOT/COLD FLASHES, DIAPHORESIS, ANXIETY AND AGITATION. WILL CONTINUE TO MONITOR.
[2018-05-04 16:00] VITALS: BP 107/70
--- NOTE | 2018-05-04 16:00 | NUR ---
COWS / CIWA ASSESSMENT 1600 COWS 17 CIWA 17. PT HAS AN INCREASED EMOTIONAL AMPLITUDE, ANXIETY AND AGITATION, PT IS CRYING ON AND OFF, LABILE MOOD, EASILY IRRITABLE, C/O SWEATING, CHILLS, HOT/COLD FLASHES, GENERALIZED BODY ACHES, DILATED PUPILS, RESTLESSLY MOVING AROUND, CLAMMY SKIN, PILOERECTION OF THE SKIN, PINS AND NEEDLES SENSATION, AND NASAL CONGESTION; HR:90.
--- NOTE | 2018-05-04 19:44 | NUR ---
END OF SHIFT PT HAS HAD INCREASED EMOTIONAL AMPLITUDE, EASILY IRRITABLE AND AGITATED, WITHDRAWN, HIGHLY ANXIOUS, WITH MULTIPLE CRYING EPISODES. PT STATED, SHE WANTS TO LEAVE AMA AND PREFERS TO STAY ON BENZOS AND OPIATES STATING, "I AM HAPPIER ON THEM. THE ONLY REASON WHY I AM HERE IS BECAUSE MY BF. GOING TO GROUP DOES NOT HELP ME, IT MAKES ME MORE ANXIOUS. PEOPLE WERE TELLING ME I HAVEN'T HIT ROCK BOTTOM BUT THEY DON'T KNOW WHAT I WENT THROUGH. I REALLY BELIEVE I AM BETTER OFF ON THEM." REASSURED PT AND PT WAS REDIRECTABLE. ENOURAGED PT TO VERBALIZE HER FEELINGS. ATIVAN 2MG, ROBAXIN, BACLOFEN, MIRALAX, AND CLONIDINE 0.1 MG PRNS GIVEN DURING SHIFT. PT ATE 50% OF MEALS, FLUIDS INTAKE 100ML, VOIDED X3, BM 0. SAFETY MEASURES IN PLACE. ENDORSEMENT GIVEN TO QUALITY ASSURANCE MONITOR CHASSIS NURSE.
--- NOTE | 2018-05-04 19:50 | NUR ---
Start on Shift Note Received a 27 y/o female px, admitted for medically supervised withdrawal from Benzos, ETOH and opiate. Px was placed on 5 day Phenobarbital taper and 5 day Subutex taper that started 05/02/2018. Last reported COWS 17 and CIWA 17 by AM shift nurse. During the rounds at 1950, px is awake inside her room sitting on the edge of the bed. Px appears disheveled. Px looks anxious, depressed with poor eye contact. Unfinished drinks and snacks noted all over her bed side table and top of the shelves. Px stated I want to out. Px wanted to go AMA. She added medications that youre giving me here dont work. Why dont you give me more Ativan or Valium. I was with a lot of benzos for a long time. Px started to cry. Detox with Phenobarbital taper was explained to the px. Px was redirected. Bed on lowest position, side rails up 2x, and call light within reach. Well continue to monitor.
[2018-05-04 20:00] VITALS: BP 115/78
--- NOTE | 2018-05-04 20:00 | NUR ---
COWS and CIWA COWS 15 and CIWA 15. Px presents with nasal stuffiness, bilateral hand tremors, with back pain of 7/10, HR= 106. Px appears very upset, very anxious, frustrated, depressed, and fidgety.
--- NOTE | 2018-05-04 20:30 | NUR ---
Px wanted to talk to Dr. Camara Px stated that she will decide to take or not her medications and she will decide if she will AMA tonight or not after she talks to Dr. Camara. Dr. Camara seen and evaluate the px without new orders.
[2018-05-04] MEDS: QUETIAPINE FUMARATE 25 MG TABLET PO SCH (22:05)
--- NOTE | 2018-05-04 22:05 | NUR ---
Behavioral notes Px stated "That fucking doctor. He's useless. Nobody cares for me. I am so uncomfortable here." Px was reported that she is discussing her medications and drug use to other px. Px was also reported that she was disrespectful to the techs. Px was put to patio restriction by the tech supervisor boarding and charge nurse due to her behavior. We'll continue to monitor.
--- NOTE | 2018-05-04 22:28 | NUR ---
PRN medications Px received Baclofen 10 mg/tab, 1 tab PO for pain of 7/10 and Clonidine 0.1 mg/tab, 1 tab PO for increased and anxiety and agitation. We'll continue to monitor.
--- NOTE | 2018-05-04 22:35 | NUR ---
COWS 15 Px is crying, irritable and agitated. Px presents with severe body ache, chills, nasal stuffiness, bilateral hand tremors and HR= 101.
--- NOTE | 2018-05-04 23:05 | NUR ---
CIWA 15 Px looks so anxious, agitated and frustrated. Px presents with bilateral hand tremors, and sweats.
--- NOTE | 2018-05-04 23:28 | NUR ---
Reassessment of pain and anxiety Px stated that her body aches is still there at 6/10 and she still anxious. We'll continue to monitor.
--- NOTE | 2018-05-04 23:30 | NUR ---
AMA form signed Px had a talk to the tech supervisor concrete pipe plant and charge nurse. Px agrees to sign the AMA form but decided to stay for the night and will talk to the administration tomorrow morning 05/05/2018. We'll continue to monitor.
[2018-05-05] VITALS: BP 97/64
--- NOTE | 2018-05-05 | NUR ---
COWS and CIWA COWS 10 and CIWA 11. Px is awake on bed in left side lying position. Px still presents with nasal stuffiness, bilateral hand tremors, with back pain of 6/10, HR= 80. Px appears to be calm, but still anxious, and depressed.
[2018-05-05] MEDS: diphenhydrAMINE 50 MG CAPSULE PO PRN ×2 (00:40→20:48)
[2018-05-05] MEDS: METHOCARBAMOL 500 MG TABLET PO PRN (00:40)
--- NOTE | 2018-05-05 00:40 | NUR ---
PRN medication Px received Robaxin 500 mg/tab, 1.5 tabs PO for pain of 6/10 and Benadryl 50 mg/cap, 1 cap PO for insomnia. We'll continue to monitor.
--- NOTE | 2018-05-05 01:40 | NUR ---
Reassessment of body aches Reassessment was deferred due to the px is asleep at this moment. Benadryl was effective to induce sleep. We'll continue to monitor.
[2018-05-05 04:00] VITALS: BP 93/60
--- NOTE | 2018-05-05 04:00 | NUR ---
COWS and CIWA deferred COWS and CIWA deferred due to the px is asleep, to assess if the px is awake per doctor's order. We'll continue to monitor.
--- NOTE | 2018-05-05 07:10 | NUR ---
End on Shift Note During the shift at 2200, px was put on patio restrictions due to behavioral issues. At 2228, px received Baclofen 10 mg PO and Clonidine 0.1 mg PO for pain and anxiety. At At 2330, Px signed an AMA form but decided to stay for the night the she will talk to junior network administrator this morning. At 0040, px received Robaxin 750 mg PO for and Benadryl 50 mg PO for insomnia. Px oral intake is 1 L, voided 2x, with No BM. Px slept for 6.5 hours At 0630, px is asleep on bed in right side lying position. Last COWS 10 and CIWA 11. Bed on lowest position, side rails up 2x, and call light within reach. Well continue to monitor. Px endorsed to AM shift nurse.
--- NOTE | 2018-05-05 07:35 | NUR ---
START OF SHIFT Rcvd endorse from ongoing nurse, client is in room, a/o x 4, she presents with anxious mood and agitation, she is crying and reports that she wants to leave, she said, "You guys don't want to give me my anxiety medications, I want benzos, I want Ativan, I was having a panic attack last night and nobody cared." Encourage client to verbalize feelings and to reconsider leaving AMA, discussed the risk of stopping taper medications, client stated, "O.K. I am going to stay." Client appears disheveled, sweat noted on forehead, flushed face, enlarged pupil, and tremors. Encourage client to attend group therapy to learn skills to maintain sober. Encourage client to increase PO fluid as tolerated to facilitate detox and rehydration. Last CIWA 10 @ 2400. PRN medications administered and noted per protocol. Seizure precautions in place. call light within reach.
[2018-05-05 08:13] VITALS: BP 107/74
[2018-05-05] MEDS: BUPRENORPHINE HCL 2 MG TAB.SUBL SL SCH ×3 (08:24→20:50)
[2018-05-05] MEDS: THIAMINE HCL 100 MG TABLET PO SCH (08:24)
[2018-05-05] MEDS: PHENOBARBITAL 60 MG TABLET PO SCH ×2 (08:24→20:50)
[2018-05-05] MEDS: GABAPENTIN 300 MG CAPSULE PO SCH ×3 (08:24→20:47)
[2018-05-05] MEDS: MULTIVITAMINS,THERAPEUTIC TABLET PO SCH (08:24)
[2018-05-05] MEDS: buPROPion XL 150 MG TAB.SR.24H PO SCH (08:24)
[2018-05-05] MEDS: SPIRONOLACTONE 100 MG TABLET PO SCH (08:24)
--- NOTE | 2018-05-05 08:24 | NUR ---
CIWA 17 / COWS 14 Client presents with anxiety, agitation, emotional volatility, restlessness, feelings of hopelessness, tremors, sweats, nausea, runny nose, flushed face, and difficulty concentrating. Subutex 2mg SL, Phenobarbital 30mg PO administered. Call light within reach.
[2018-05-05] MEDS: CLONIDINE HCL 0.1 MG TABLET PO PRN ×3 (08:30→20:49)
--- NOTE | 2018-05-05 08:30 | NUR ---
PRN Clonidine 0.1mg PO administered for anxiety and agitation. Call light within reach.
--- NOTE | 2018-05-05 09:30 | NUR ---
Reassess PRN Clonidine 0.1mg, client reports that she is very anxious and she would rather have Ativan for her anxiety and agitation. Educated client on other measures to decrease her anxiety, deep breathing technique, reinforcement needed.
--- NOTE | 2018-05-05 10:41 | NUR ---
Client was prompted to attend group counseling sessions and client agreed to do so based on how she was feeling.
[2018-05-05] MEDS: IBUPROFEN 600 MG TABLET PO PRN (11:57)
--- NOTE | 2018-05-05 11:59 | NUR ---
PRN medication; Patient is complaining of generalized pain/muscle aches rated 7/10 on adult pain scale. PRN Motrin 600 mg PO given for pain. Will endorse to primary nurse for re-assessment.
[2018-05-05 12:55] VITALS: BP 122/65
--- NOTE | 2018-05-05 12:55 | NUR ---
CIWA 16 / COWS 14 Client continues to present with anxiety, agitation, emotional volatility, restlessness, feelings of hopelessness, tremors, sweats, nausea, runny nose, flushed face, and difficulty concentrating. Client declines other medications to manage withdrawal symptoms, she stated, "I just want Ativan, why can't you just give it to me, I got to pills yesterday." Reminded client that she on Phenobarbital taper and not Ativan taper, additional education needed. Call light within reach.
--- NOTE | 2018-05-05 12:59 | NUR ---
Reassess PRN Motrin 600mg PO client reports no relief from generalized pain 03/31, client declined Tylenol and stated, "Why can't I just have Ativan? Educate client on Ativan's indication, client requires reinforcement. Addendum: 05/05/18 at 1545 by SITA BAGLEY RN additional education
[2018-05-05] MEDS: HYDROXYZINE PAMOATE 25 MG CAPSULE PO PRN (15:37)
[2018-05-05] MEDS: BACLOFEN 10 MG TABLET PO PRN (15:37)
--- NOTE | 2018-05-05 15:37 | NUR ---
PRN Baclofen 10mg PO for muscle spasms, Clonidine 0.1mg for agitation, Vistaril 25mg PO for anxiety. Client is upset after talking with Dr. Camara. Client is crying and said, "I feel like the doctor wants me to leave, because he does not want to make me comfortable, I need Ativan for my anxiety and to make me feel happy and he doesn't understand that." Additional education required on Ativan medication and uses. Call light within reach.
[2018-05-05 16:37] VITALS: BP 105/70
--- NOTE | 2018-05-05 16:37 | NUR ---
Reassess PRN Baclofen 10mg, Clonidine 0.1mg, Vistaril 25mg, client reports no relief from muscle spasms, agitation and anxiety.
--- NOTE | 2018-05-05 16:38 | NUR ---
CIWA 15 / 12 Client continues to present with anxiety, agitation, tremors, sweats, nausea, runny nose, flushed face, and difficulty concentrating. Will continue to offer support. Client went to the patio to smoke a cigarette, client refuses to try Nicotine patch or gum.
--- NOTE | 2018-05-05 18:11 | NUR ---
Client was prompted to attend the twice daily group sessions.
--- NOTE | 2018-05-05 19:20 | NUR ---
END OF SHIFT Endorse client to incoming nurse, client is in room, a/o x 4, She continues to present with anxious mood, flat affect, agitation, tremors, flushed face, and difficulty concentrating. Last CIWA 15 / 11 @ 1600. Client is compliant with 2/3 of group therapy. Adequate PO fluid intake 1900ml, void x 3. Consumes 50% of meals. PRN administered and noted per protocol. Seizure precaution in place. call light within reach.
--- NOTE | 2018-05-05 19:30 | NUR ---
Start of Shift Pt admitted 05/01/18 for medically managed withdrawal from Benzodiazapines, Opiates, and ETOH. Pt listed as a full code, with allergy to lactose and on a regular lactose free diet. Pt found in hallway, oriented x 4, irritable and angry, pt stating they wont give me the drugs I need. Pt reinterates she didnt come in to give up her benzodiazepines, just her opiates. Pt states she made a phone call to her boyfriend earlier who told her if she left detox AMA she couldnt come back home, and that hed already given up on her. Pt displaying histrionic behavior, bursting into tears and crying, throwing glaring looks when not immediately gratified. Coping skills and relaxation techniques discussed with pt, support and encouragement given. Full safety measures remain in place with bed in lowest position, locked with both side rails up x 2, call mathews within reach and frequent rounding. Will monitor pt for duration of shift for any s/sxs of distress or w/d and promptly attend.
[2018-05-05 20:00] VITALS: BP 98/61
--- NOTE | 2018-05-05 20:00 | NUR ---
COWS/CIWA Assessment COWS 17, amb sweats/chills, restlessness, pupils larger than normal, B/A's, nasal congestion, stomach cramps, tremors, yawning, anxiety and piloerection. CIWA 18, amb nausea, hand tremors, diaphoresis, anxiety and agitation.
--- NOTE | 2018-05-05 20:48 | NUR ---
PRN Meds Benedryl 50mg PO for insomnia, and Clonidine 0.1mg PO for anxiety given. Will continue to monitor, and reassess in 1 hour.
[2018-05-05] MEDS: QUETIAPINE FUMARATE 25 MG TABLET PO SCH (20:49)
--- NOTE | 2018-05-05 21:48 | NUR ---
PRN Reassessment Benedryl for insomnia, and Clonidine for anxiety given 1 hour prior. At present pt reports slight decrease in anxiety and some drowsiness. Pt continues to request Ativan, told again it is not available. Relaxation techniques suggested and encouraged.
[2018-05-06] VITALS: BP 84/50
--- NOTE | 2018-05-06 | NUR ---
Midnight Rounds VS's obtained/stable, COWS and CIWA deferred r/t pt sleeping/refused. RR 16, even and nonlabored. Will continue to monitor for all s/sx's distress or w/d, and promptly attend.
--- NOTE | 2018-05-06 04:00 | NUR ---
VS's, COWS/CIWA Deferred 0400 VS's, COWS/CIWA deferred r/t pt sleeping/refused. RR 14, even and nonlabored. Will continue to monitor and promptly attend to all s/sx's w/d or distress.
--- NOTE | 2018-05-06 07:17 | NUR ---
End of Shift Endorsement given to [facility] day nurse. Pt admitted 05/01/18 for medically managed withdrawal from Benzodiazepines, Opiates, and ETOH remains starting day 5 of a 5 day Subutex and Phenobarbitol taper (started 05/02/18). Pt affect is sad, worried, angry with repeated requests for Ativan, claiming doctors and nurses dont care about her. Pt didnt come in here to get off of Benzos, just the narcotics. Pt also received word from boyfriend on prior day shift that if she left detox AMA she couldnt come home, and that he had already given up on her. Pt anxious and agitated, behavior labile and emotional with fits of crying. PRNs for shift included Benedryl and Clonidine. Pt slept for 7 hours with 855mls intake and 2 voids. Full safety measures remain in place.
--- NOTE | 2018-05-06 07:50 | NUR ---
START OF SHIFT PT IS A 27 Y/O M ADMITTED ON 05/01/18 FOR MEDICALLY SUPERVISED BENZO AND OPIATE WITHDRAWAL. PT IS PLACED ON 5 DAY SUBUTEX AND 5 DAY PHENOBARBITAL TAPER AND TOLERATING WELL; TODAY IS THE LAST DAY OF THE SUBUTEX TAPER. PT IS A/OX4, RESPIRATIONS EVEN AND UNLABORED. UPON ENTERING ROOM, MULITPLE DRINK BOTTLES AND SNACK WRAPPERS ON THE TABLES, PT IS AOX4, HAS A DISHEVELED APPEARANCE, APPEARS WORRIED, UPSET AND ANGRY AND IS WITHDRAWN. PT PRESENTS ANXIETY, AGITATION, RESTLESSNESS, IRRITATION, HOT/COLD FLASHES, DIAPHORESIS, BONE AND JOINT ACHES, NASAL STUFFINESS, POOR APPETITE, TINGLING, PINS AND NEEDLES SENSATIONS ON THE BACK OF THE NECK, ANHEDONIA, DYSPHORIA, LABILE MOOD, TREMORS NOTED. PT STATES, "I DON'T UNDERSTAND WHY TODAY I ONLY GET 1 SUBUTEX WHEN YESTERDAY I WAS GOT IT 3 TIMES." PT ALSO STATES SHE IS NOT PLANNING ON STAYING OFF OF BENZOS WHEN SHE LEAVES DETOX. PT SLEPT 6 HRS, BENADRYL, CLONIDINE PRNS GIVEN LAST SHIFT. LAST COWS 17 AND CIWA 18. ENCOURAGED PT TO VERBALIZE FEELINGS ABOUT SITUATION AND EDUCATED PT WITH TODAY'S PLAN OF CARE AND MED REGIMEN. SIDE RAILS UPX2 AND PADDED, BED IN LOWEST POSITION. CALL LIGHT WITHIN REACH. SAFETY MEASURES IN PLACE. WILL CONTINUE TO MONITOR.
[2018-05-06 08:00] VITALS: BP 91/63
--- NOTE | 2018-05-06 08:00 | NUR ---
COWS / CIWA ASSESSMENT 0800 COWS 17 AND CIWA 20. PT IS AOX4, HAS A DISHEVELED APPEARANCE, WORRIED, UPSET AND ANGRY ABOUT HAVING ONLY 1 SUBUTEX TODAY. PT PRESENTS ANXIETY, AGITATION, RESTLESSNESS, IRRITATION, HOT/COLD FLASHES, DIAPHORESIS, NASAL CONGESTION, BONE AND JOINT ACHES, GENERALIZED PAIN, POOR APPETITE, C/O PINS AND NEEDLES SENSATIONS ON THE BACK OF THE NECK, ANHEDONIA, DYSPHORIA, LABILE MOOD, AND TREMORS NOTED.
[2018-05-06] MEDS: GABAPENTIN 300 MG CAPSULE PO SCH ×3 (08:42→21:19)
[2018-05-06] MEDS: buPROPion XL 150 MG TAB.SR.24H PO SCH (08:42)
[2018-05-06] MEDS: MULTIVITAMINS,THERAPEUTIC TABLET PO SCH (08:42)
[2018-05-06] MEDS: SPIRONOLACTONE 100 MG TABLET PO SCH (08:42)
[2018-05-06] MEDS: THIAMINE HCL 100 MG TABLET PO SCH (08:42)
[2018-05-06] MEDS ORDERED: PHENOBARBITAL 60 MG TABLET PO SCH (09:00)
[2018-05-06] MEDS ORDERED: BUPRENORPHINE HCL 2 MG TAB.SUBL SL SCH (09:00)
[2018-05-06] MEDS: BACLOFEN 10 MG TABLET PO PRN ×3 (09:12→21:19)
[2018-05-06] MEDS: IBUPROFEN 600 MG TABLET PO PRN ×2 (09:12→21:19)
--- NOTE | 2018-05-06 09:12 | NUR ---
PRN BACLOFEN 10 MG , IBUPROFEN 600 MG PO PRNS GIVEN FOR C/O GENERALIZED PAIN 03/31, WITH JOINT AND BONE ACHES. WILL MONITOR AND REASSESS.
--- NOTE | 2018-05-06 10:12 | NUR ---
REASSESSMENT PT REPORTS MEDICATION HAS DECREASED HER GENERALIZED PAIN HOWEVER IS STILL THERE; PAIN 5/10. WILL CONTINUE TO MONITOR.
--- NOTE | 2018-05-06 12:00 | NUR ---
COWS / CIWA ASSESSMENT 1200 COWS 17 AND CIWA 20. PT HAS RETURNED FROM GOING TO GROUP, STATES SHE SAT IN GROUP BUT DID NOT PARTICIPATE. PT HAS POOR EYE CONTACT, UPSET MOOD, IS HIGHLY IRRITABLE, C/O ANXIETY, AGITATION, RESTLESSNESS, CHILLS, HOT/COLD FLASHES, DIAPHORESIS, NASAL CONGESTION, BONE AND JOINT ACHES, GENERALIZED PAIN 8/10, NAUSEA, POOR APPETITE, PINS AND NEEDLES SENSATIONS ON THE BACK OF THE NECK. PRESENTS ANHEDONIA, DYSPHORIA, AND TREMORS ARE NOTED.
[2018-05-06 12:29] VITALS: BP 97/67
[2018-05-06] MEDS: CLONIDINE HCL 0.1 MG TABLET PO PRN ×2 (12:48→17:10)
[2018-05-06] MEDS: ONDANSETRON ODT 4 MG TAB.RAPDIS SL PRN (12:48)
[2018-05-06] MEDS: METHOCARBAMOL 500 MG TABLET PO PRN (12:48)
[2018-05-06] MEDS: ACETAMINOPHEN 325 MG TABLET PO PRN (12:48)
--- NOTE | 2018-05-06 12:48 | NUR ---
PRN CLONIDINE 0.1 MG PO, ROBAXIN 750 MG PO, ACETAMINOPHEN 650 MG PO, ZOFRAN 4 MG SL, PRNS GIVEN. PT C/O NAUSEA, MUSCLE CRAMPS, GENERALIZED BODY ACHES 8/10, CHILLS, COLD/HOT FLASHES, PILOERECTION OF THE SKIN. WILL MONITOR AND REASSESS.
--- NOTE | 2018-05-06 13:45 | NUR ---
REASSESSMENT PT CONTINUES TO C/O CHILLS, NAUSEA, PILOERECTION OF THE SKIN, HOT/COLD FLASHES, ANXIETY AND AGITATION, AND GENERALIZED BODY ACHES. ENCOURAGED PT TO USE DEEP BREATHING EXERCISES.
[2018-05-06] MEDS: HYDROXYZINE PAMOATE 25 MG CAPSULE PO PRN ×2 (14:24→21:19)
--- NOTE | 2018-05-06 14:24 | NUR ---
PRN VISTARIL PRN GIVEN FOR C/O ANXIETY, PT IS HIGHLY AGITATED, CRYING, STATED, "I HATE THE WAY I FEEL. I AM AFRAID I AM GOING TO RELAPSE." WILL MONITOR AND REASSESS.
--- NOTE | 2018-05-06 15:24 | NUR ---
REASSESSMENT PT REPORTS VISTARIL HAS HELPED DECREASED HE ANXIETY. PT STATES, "IT ACTUALLY HELPED ME FEEL BETTER." SAFETY MEASURES IN PLACE. WILL CONTINUE TO MONITOR.
[2018-05-06 16:00] VITALS: BP 110/67
--- NOTE | 2018-05-06 16:00 | NUR ---
COWS / CIWA ASSESSMENT 1600 COWS 17 AND CIWA 16. PT CONTINUES TO HAVE HAS POOR EYE CONTACT, UPSET MOOD, IS HIGHLY IRRITABLE, C/O NAUSEA, PRESENTS PILOERECTION OF THE SKIN, ANXIETY, AGITATION, RESTLESSNESS, CHILLS, HOT/COLD FLASHES, DIAPHORESIS, NASAL CONGESTION, BONE AND JOINT ACHES, GENERALIZED PAIN, POOR APPETITE, PINS AND NEEDLES SENSATIONS ON THE BACK OF THE NECK, ANHEDONIA, DYSPHORIA, AND TREMORS ARE NOTED.
--- NOTE | 2018-05-06 17:10 | NUR ---
PRN CLONIDINE 0.1 MG PO PRN AND BACLOFEN 10 MG PO PRN GIVEN FOR C/O MUSCLE ACHES, ANXIETY, CHILLS, PILOERECTION OF THE SKIN, HOT/COLD FLASHES. WILL MONITOR AND REASSESS.
--- NOTE | 2018-05-06 18:10 | NUR ---
REASSESSMENT PT REPORTS MEDICATIONS WERE EFFECTIVE IN DECREASING HOT/COLD FLASHES, CHILLS, AND TO LOWER ANXIETY. WILL CONTINUE TO MONITOR.
--- NOTE | 2018-05-06 19:30 | NUR ---
START OF SHIFT PT IS A 27 Y/O M ADMITTED ON 05/01/18 FOR MEDICALLY SUPERVISED WITHDRAWALS FROM [facility]. PT HAS COMPLETED HER 5 DAY SUBUTEX AND 5 DAY PHENOBARBITAL TAPER AND IS SCHEDULED FOR DISCHARGE TOMORROW MORNING. PT WAS GIVEN BACLOFEN X2, CLONIDINE X2, IBUPROFEN, ROBAXIN, TYLENOL, ZOFRAN, VISTARIL DURING THE DAY SHIFT.LAST COWS=14,LAST CIWA=16.PT STATED THAT THE MEDICATIONS ARE HELPING HER WITH THE WITHDRAWAL SYMPTOMS. ALL SAFETY MEASURES ARE IN PLACE,SIDE RAILS UPX2 , BED IS IN LOWEST POSITION. CALL LIGHT WITHIN REACH. WILL CONTINUE TO MONITOR.
--- NOTE | 2018-05-06 19:49 | NUR ---
END OF SHIFT PT CONTINUED TO BE HIGHLY EMOTIONAL, CRYING IN THE HALLWAY MID-SHIFT, LABILE MOOD EXHIBITED. PT WAS GIVEN BACLOFEN X2, CLONIDINE X2, IBUPROFEN, ROBAXIN, TYLENOL, ZOFRAN, VISTARIL PRNS DURING SHIFT. PT ATE 25/50/50% OF MEALS. LAST COWS 14 AND CIWA 16 @1600. SAFETY MEASURES IN PLACE. ENDORSEMENT GIVEN TO COMPUTER NETWORKING INSTRUCTOR NURSE.
[2018-05-06 20:00] VITALS: BP 97/65
[2018-05-06] MEDS: QUETIAPINE FUMARATE 25 MG TABLET PO SCH (21:19)
--- NOTE | 2018-05-06 21:20 | NUR ---
PRN MEDS PT C/O BODY ACHES/PAIN AND ANXIETY.PRN MEDS MOTRIN,BACLOFEN AND VISTARIL GIVEN ORDERED.WILL MONITOR FOR EFFECTIVENESS.
--- NOTE | 2018-05-06 22:20 | NUR ---
PRN REASSESSMENT PRN MEDS ARE EFFECTIVE.PT IS CALM AND RESTING IN BED WITH EYES CLOSED.APPEARS TO BE SLEEPING.NO S/SF DISTRESS NOTED.
--- NOTE | 2018-05-07 | NUR ---
COWS/CIWA DEFERRED PT IS RESTING IN BED WITH EYES CLOSED,APPEARS TO BE IN DEEP SLEEP.BREATHING IS EVEN AND NONLABORED,NO S/S OF DISTRESS NOTED,V/S REFUSED.
[2018-05-07] MEDS ORDERED: ONDA4TAB11 SL (01:02)
[2018-05-07] MEDS ORDERED: HYDR-3895 PO (01:02)
[2018-05-07] MEDS ORDERED: GABA-534 PO (01:02)
[2018-05-07] MEDS ORDERED: CLON0.1T14 PO (01:02)
[2018-05-07] MEDS ORDERED: DIPH50CA37 PO (01:02)
[2018-05-07] MEDS ORDERED: IBUP-1955 PO (01:02)
[2018-05-07] MEDS ORDERED: BUPR-96 PO (01:02)
[2018-05-07] MEDS ORDERED: BACL10TA PO (01:02)
[2018-05-07] MEDS ORDERED: QUET25TA PO (01:02)
--- NOTE | 2018-05-07 04:00 | NUR ---
COWS/CIWA DEFERRED PT IS RESTING IN BED WITH EYES CLOSED,APPEARS TO BE IN DEEP SLEEP.BREATHING IS EVEN AND NONLABORED,NO S/S OF DISTRESS NOTED,V/S REFUSED.
--- NOTE | 2018-05-07 06:48 | NUR ---
END OF SHIFT PT IS A 27 Y/O FEMALE ADMITTED ON 05/01/18 FOR MEDICALLY SUPERVISED WITHDRAWALS FROM [facility]. PT HAS COMPLETED HER 5 DAY SUBUTEX AND 5 DAY PHENOBARBITAL TAPER AND IS SCHEDULED FOR DISCHARGE TODAY. PT WAS GIVEN BACLOFEN ,VISTARIL AND IBUPROFEN WITH GOOD EFFECT.PT SLEPT 7 HRS,FLUID INTAKE WAS 710 MLS,VOIDED X 1. LAST COWS=11,LAST CIWA=12. ALL SAFETY MEASURES ARE IN PLACE,SIDE RAILS UPX2 , BED IS IN LOWEST POSITION. CALL LIGHT WITHIN REACH. WILL CONTINUE TO MONITOR.
--- NOTE | 2018-05-07 07:50 | NUR ---
START OF SHIFT PT IS A 27 Y/O M ADMITTED ON 05/01/18 FOR MEDICALLY SUPERVISED [facility] WITHDRAW[facility]. PT HAS COMPLETED THE SUBUTEX AND PHENOBARBITAL TAPER YESTERDAY AND IS MEDICALLY CLEARED TO BE DISCHARGED TODAY. PT IS A/OX4, RESPIRATIONS EVEN AND UNLABORED, HAS A DISHEVELED APPEARANCE, APPEARS WORRIED, UPSET AND ANGRY AND IS WITHDRAWN. PT PRESENTS ANXIETY, AGITATION, RESTLESSNESS, IRRITATION, HOT/COLD FLASHES, DIAPHORESIS, BONE AND JOINT ACHES, TINGLING SENSATIONS ON THE BACK OF THE NECK, ANHEDONIA, DYSPHORIA, HAS A LABILE MOOD. PT SLEPT 7 HRS, BACLOFEN, VISTARIL, IBUPROFEN PRNS GIVEN LAST SHIFT. LAST COWS 10 AND CIWA 10. PT IS IN GOOD SPIRITS TODAY AND STATES SHE IS READY TO BE DISCHARGED. SIDE RAILS UPX2 AND PADDED, BED IN LOWEST POSITION. CALL LIGHT WITHIN REACH. SAFETY MEASURES IN PLACE. WILL CONTINUE TO MONITOR.
--- NOTE | 2018-05-07 08:00 | NUR ---
COWS AND CIWA ASSESSMENT COWS 7 AND CIWA 9. PT IS A/OX4, RESPIRATIONS EVEN AND UNLABORED, HAS A DISHEVELED APPEARANCE, STATES SHE IS READY TO BE DISCHARGED AND IS IN GOOD SPIRITS. PT PRESENTS ANXIETY, AGITATION, RESTLESSNESS, IRRITATION, HOT/COLD FLASHES, DIAPHORESIS, BONE AND JOINT ACHES, TINGLING SENSATIONS ON THE BACK OF THE NECK, ANHEDONIA, DYSPHORIA, HAS A LABILE MOOD.
[2018-05-07 08:08] VITALS: BP 97/64
[2018-05-07] MEDS: MULTIVITAMINS,THERAPEUTIC TABLET PO SCH (08:20)
[2018-05-07] MEDS: HYDROXYZINE PAMOATE 25 MG CAPSULE PO PRN (08:20)
[2018-05-07] MEDS: THIAMINE HCL 100 MG TABLET PO SCH (08:20)
[2018-05-07] MEDS: BACLOFEN 10 MG TABLET PO PRN (08:20)
[2018-05-07] MEDS: GABAPENTIN 300 MG CAPSULE PO SCH (08:20)
[2018-05-07] MEDS: buPROPion XL 150 MG TAB.SR.24H PO SCH (08:20)
[2018-05-07] MEDS: IBUPROFEN 600 MG TABLET PO PRN (08:20)
[2018-05-07] MEDS: SPIRONOLACTONE 100 MG TABLET PO SCH (08:23)
--- NOTE | 2018-05-07 09:40 | NUR ---
DISCHARGE NOTE PT IS IN STABLE CONDITION, VS WNL. PT LEFT THE BUILDING AT 0940 TODAY ON 05/07/18 WITH ALL BELONGINGS, PRESCRIPTIONS, AND DISCHARGE INSTRUCTIONS. D/C INSTRUCTIONS GIVEN AND PT VERBALIZED UNDERSTANDING. LAST COWS 7 AND CIWA 8. PT STATED SHE WAS READY TO BE DISCHARGED AND GO TO TREATMENT. PT HAS BEEN PICKED UP BY [facility].
== END 2018-05-07 09:40 | disposition other institution (70) | DRG 895 ==
LOC: SRC 12:56
PROVIDERS: ADMIT Family Medicine Addiction Medicine; ATTEND Family Medicine Addiction Medicine
PROC: HZ2ZZZZ Detoxification Services for Substance Abuse Treatment (ICD-10-PCS; principal; 2018-05-01)
PROC: HZ41ZZZ Group Counseling for Substance Abuse Treatment, Behavioral (ICD-10-PCS; 2018-05-03)
DX: F13.231 Sedative, hypnotic or anxiolytic dependence with withdrawal delirium (principal); F33.1 Major depressive disorder, recurrent, moderate; F11.23 Opioid dependence with withdrawal; F90.9 Attention-deficit hyperactivity disorder, unspecified type; F41.0 Panic disorder [episodic paroxysmal anxiety]; F12.90 Cannabis use, unspecified, uncomplicated; F17.210 Nicotine dependence, cigarettes, uncomplicated
CPT/HCPCS: 36415; 70030-TC; 80307; 80346; 80349; 83690; 83735; 84703; 85025; 86580; 86592; 86705; 86803; 87340; 87806; G0480; J3411; J8499; Q0162; Q0163